=== PATIENT | male | born 1985 | race Caucasian/White ===

== ENCOUNTER 2018-06-28 19:26 | Emergency (ER) | payer BC, OTHER ==
[~2018-06-28] VITALS: Ht 180.3 cm; Wt 77.1 kg
[~2018-06-28 19:26] MED LIST: HYDR25CA5 PO
--- OUTSIDE RECORDS SUMMARY | 2018-06-28 19:31 | XMS REPORT | Continuity of Care Document ---
Author Author Formerly [facility] Address Unknown Phone Unavailable Allergies Active Description Code Type Severity Reaction Onset Reported/Identified Relationship to Patient Clinical Status Yes NKA Drug N/A N/A Medications There is no data. Problems There is no data. Procedures There is no data. Results There is no data. Encounters ACCT No. Visit Date/Time Discharge Status Pt. Type Provider Facility Loc./Unit Complaint [id number] 05/05/2015 14:14:54 Document Registration
[2018-06-28] MEDS ORDERED: [UNRECOGNIZED DRUG - OTHER] (19:36)
--- NOTE | 2018-06-28 19:44 | ED Psychosocial ---
General Chief Complaint: Psych/Social Disorder Stated Complaint: ANXIETY,PANIC ATTACKS Nursing Triage Note: anxiety, worse last 2 weeks. Source: patient Exam Limitations: no limitations History of Present Illness Date Seen by Provider: Jun 28, 2018 Time Seen by Provider: 19:42 Initial Comments To ER with reports of anxiety and panic attacks. He used to be on medication daily for this as well as when necessary medication for it. He's not been on anything for a couple of years because symptoms seem to go away. For the past 2 weeks he's been having increasing anxiety and panic attacks, feeling very anxious for about the past 4 hours. He takes nothing for it. He took Vistaril formerly and would like to get some more of that has seemed to be helpful. He will follow-up with his primary care doctor Gilda next week to start a daily medication. Timing/Duration: constant Severity: moderate Associated Symptoms: anxiety Allergies and Home Medications Allergies Coded Allergies: No Known Drug Allergies (Unverified Allergy, Mild, 01/30/09) Home Medications Hydroxyzine Pamoate 25 Mg Capsule, 25 MG PO Q4H FOR ANXIETY Prescribed by: CASSIDY DOUGLASS on 02/01/09 0317 Patient Home Medication List Home Medication List Reviewed: Yes Review of Systems Constitutional: see HPI EENTM: see HPI Respiratory: no symptoms reported Cardiovascular: no symptoms reported Genitourinary: no symptoms reported Musculoskeletal: see HPI Skin: no symptoms reported Psychiatric/Neurological: No Symptoms Reported Past Elmprqq-Dcagrl-Jpavhv Hx Patient Social History Alcohol Use: Occasionally Uses Alcohol Beverage of Choice: Beer Recreational Drug Use: No Smoking Status: Never a Smoker 2nd Hand Smoke Exposure: No Recent Foreign Travel: No Contact w/Someone Who Travel: No Recent Infectious Disease Expo: No Recent Hopitalizations: No Immunizations Up To Date Tetanus Booster (TDap): Unknown Seasonal Allergies Seasonal Allergies: No Past Medical History Surgeries: No Respiratory: No Cardiac: No Neurological: No Genitourinary: No Gastrointestinal: No Musculoskeletal: No Endocrine: No HEENT: No Cancer: No Psychosocial: Yes Anxiety Integumentary: No Blood Disorders: No Physical Exam Vital Signs - First Documented 06/28/18 19:30 Temp 98.3 Pulse 105 Resp 18 B/P (MAP) 153/95 (114) Pulse Ox 100 O2 Delivery Room Air Capillary Refill : Less Than 3 Seconds Height, Weight, BMI Height: 5'11.00" Weight: 170lbs. oz. 77.520579zh; BMI Method:Stated General Appearance: WD/WN, no apparent distress HEENT: PERRL/EOMI, normal ENT inspection Respiratory: normal breath sounds, no respiratory distress, no accessory muscle use Gastrointestinal: normal bowel sounds, soft Extremities: normal range of motion, non-tender Neurologic/Psychiatric: alert, normal mood/affect, oriented x 3 Appearance/Memory: appropriate appearance, appropriate insight, neat Behavior/Eye Contact: cooperative, good eye contact, normal speech Thoughts/Hallucinations: normal thought pattern, no apparent hallucination Skin: normal color, warm/dry Progress/Results/Core Measures Results/Orders My Orders Orders - EDITH JOHN APRN Lorazepam Tablet (Ativan Tablet) (06/28/18 19:45) Vital Signs/I&O 06/28/18 19:30 Temp 98.3 Pulse 105 Resp 18 B/P (MAP) 153/95 (114) Pulse Ox 100 O2 Delivery Room Air Blood Pressure Mean: 114 Departure Impression Primary Impression: Anxiety Disposition: 01 HOME, SELF-CARE Condition: Stable Departure-Patient Inst. Decision time for Depature: 19:46 Referrals: AGUILA VO MD (PCP/Family) Primary Care Physician Patient Instructions: Panic Disorder (DC) Add. Discharge Instructions: 1. Follow-up with Dr. Vo next week All discharge instructions reviewed with patient and/or family. Voiced understanding. Scripts Hydroxyzine Pamoate (Vistaril) 50 Mg Capsule 50 MG PO Q6H PRN for ANXIETY, #30 CAP Prov: EDITH JOHN APRN 06/28/18 EDITH JOHN APRN Jun 28, 2018 19:44
[2018-06-28] MEDS ORDERED: LORazepam 0.5 MG (ATIVAN) TABLET PO ONE (19:45)
[2018-06-28] MEDS ORDERED: HYDR50CA PO (19:46)
[2018-06-28 19:51] VITALS: BP 153/95
== END 2018-06-28 19:50 | disposition home or self-care (01) ==
LOC: EDUNIT# 19:26 → ER 19:28
DX: F41.9 Anxiety disorder, unspecified (principal)
CPT/HCPCS: 99283